=== PATIENT | female | born 1955 | race Caucasian/White ===

== ENCOUNTER 2025-03-07 15:39 | Observation (INO) | payer BC ==
[~2025-03-07] VITALS: Ht 160 cm; Wt 117.1 kg
[2025-03-07] VITALS (8 sets, daily range): BP systolic 126–153; BP diastolic 60–87
[~2025-03-07 15:39] MED LIST: SEVOFLURANE 250 ML BTL INH ONE
[2025-03-07] MEDS ORDERED: LIPITOR10 MG (15:50)
[2025-03-07] MEDS ORDERED: BUSPIRONE HCL15 MG PO (15:51)
[2025-03-07] MEDS ORDERED: OMEPRAZOLE20 MG PO (15:51)
[2025-03-07] MEDS ORDERED: DESVENLAFAXINE25 MG PO (15:52)
[2025-03-07] MEDS ORDERED: SODIUM CHLORIDE 0.9% 1,000 ML IV ONE (16:00)
[2025-03-07] MEDS ORDERED: CEFAZOLIN SODIUM 1 GM/10 ML SYR IV ONE (16:00)
[2025-03-07] MEDS ORDERED: HYDROmorphone HCL 1 MG/ML SYR IV ONE (16:00)
[2025-03-07 16:18] LABS: BASOPHILS 0.1 % (0.1-1.2); EOSINOPHILS 0.1 % (0.7-5.8); LYMPHOCYTES 42.8 % (19.3-51.7); MCH 28.2 PG (25.6-32.2); MCHC 31.5 g/dL (32.2-35.5); MCV 89.5 fL (79.4-94.8); MONOCYTES 7.8 % (4.7-12.5); NEUTROPHILS 48.8 % (34.0-71.1); RBC 4.78 M/uL (3.93-5.22)
[2025-03-07 16:32] LABS: ALT (SGPT) 19.0 U/L (14-59); AST (SGOT) 18.0 U/L (15-37); GLOMERULAR FILTRATION RATE,EST 51.0 mL/min (>60); PROTEIN, TOTAL 7.0 g/dL (6.4-8.2); UREA NITROGEN 21.0 mg/dL (7-18)
[2025-03-07] MEDS ORDERED: SODIUM CHLORIDE 0.9% 20 ML IV ONE (16:42)
[2025-03-07] MEDS ORDERED: LIDOCAINE HCL 2% 5 ML SDV ONE (16:42)
[2025-03-07] MEDS ORDERED: DEXAMETHASONE SOD PHOS 4 MG/ML VIAL ONE (16:42)
[2025-03-07] MEDS ORDERED: fentaNYL citrate 100 MCG/2 ML VIAL ONE (16:42)
[2025-03-07] MEDS ORDERED: Ropivacaine HCl 0.5% 30 ML VIAL ONE (16:42)
[2025-03-07] MEDS ORDERED: LACTATED RINGER'S 1,000 ML IV ONE (18:28)
[2025-03-07] MEDS ORDERED: HYDROCODONE/ACETA 7.5/325 TAB PO PRN (18:30)
[2025-03-07] MEDS ORDERED: KETOROLAC TROMETHAMINE 15 MG/ML VIAL IV PRN (18:30)
[2025-03-07] MEDS ORDERED: IBLOOD GLUCOSE TEST STRIP 1 EA TEST VI PRN (18:45)
[2025-03-07] MEDS ORDERED: NALOXONE HCL 0.4 MG SYR IV PRN (18:45)
[2025-03-07] MEDS ORDERED: fentaNYL citrate 50 MCG/ML SDV IV PRN (18:45)
--- NOTE | 2025-03-07 19:24 | NUR ---
RECEIVED TO ROOM 124 FROM PACU. RECEIVED REPORT FROM SEPTIC CLEANER. SPOUSE AT BEDSIDE. PT DENIES PAIN, REPORTS LEFT ARM NUMB. CALL LIGHT WITHIN REACH. PT ORIENTED TO ROOM.
--- NOTE | 2025-03-07 19:33 | NUR ---
03/07/25 193 Sarah Nair 1831: PATIENT ARRIVED TO PACU WITH ORAL AIRWAY IN PLACE. BREATHING SPONTANEOUSLY. 183: ORAL AIRWAY REMOVED BY MILITARY PAY TECHNICIAN. 1840: PATIENT DENIES PAIN. INTERMITTENTLY FALLS TO SLEEP. AWAKENS EASILY TO VOICE. 1899: PATIENT TRANSFERRED TO MED-SURG ROOM 124. 0: THIS RN STAYED AT PATIENT'S BEDSIDE IN ROOM 124 UNTIL M/S RN AVAILABLE FOR REPORT. IN PATIENT'S ROOM. REPORT GIVEN TO M/S RN. PATIENT TOLERATED TRANSFER TO M/S WELL.
--- NOTE | 2025-03-07 20:10 | NUR ---
ADMISSION ASSESSMENT COMPLETED. PT A&Ox4. DENIES PAIN. LSC, ON RA. CPOX IN PLACE. HRR. BTA, PT IS TOLERATING WATER AND JELLO. SCD'S IN PLACE TO BLE. LUE W/ CAST IN PLACE, CDI. LUE REMAINS NUMB, PT IS UNABLE TO WIGGLE FINGERS. FINGERS PINK AND WARM, CAP REFILL WNL. UNABLE TO PALPATE LEFT RADIAL PULSE R/T CAST. LUE ELEVATED ON PILLOWS W/ ICE IN PLACE. RFA IV W/ PACU LR SLOW DRIP. PT ASSISTED TO BR, SBA. LUE SLING APPLIED. VOIDS WNL. SPOUSE AT BEDSIDE. CALL LIGHT WITHIN REACH.
--- NOTE | 2025-03-07 21:55 | NUR ---
POST-OP VS OBTAINED. PT ASSISTED TO BR, VOIDS WNL. LUE IN SLING, CONTINUES W/ NUMBNESS AND UNABLE TO WIGGLE FINGERS. FINGERS PINK AND WARM, UNABLE TO CHECK RADIAL PULSE R/T CAST.
[2025-03-07] MEDS ORDERED: CEFAZOLIN SODIUM 2 GM/20 ML SYR IV SCH (22:00)
[2025-03-07] MEDS ORDERED: CEFAZOLIN SODIUM 2 GM in SODIUM CHLORIDE 0.9% 100 ML IV SCH (22:00)
--- NOTE | 2025-03-07 22:31 | NUR ---
POST-OP VSS, IV ABX ALSO COMPLETE. IV SITE WNL AND SALINE LOCKED. PRIMARY RN MADE AWARE. pt DENIES ADDITIONAL NEEDS OR CONCERNS, CALL LIGHT IN REACH.
--- NOTE | 2025-03-07 23:09 | NUR ---
PT ASLEEP, APPEARS COMFORTABLE. LUE ELEVATED ON PILLOWS.
--- NOTE | 2025-03-08 00:31 | EKG ---
[facility] [address] [facility] [place] [address] Signed Normal sinus rhythm Normal ECG No previous ECGs available Confirmed by Alireza Santamaria MD () on 03/08/2025 12:31:33 AM Electronically Signed By: ALIREZA SANTAMARIA MD 03/08/2530 PATIENT NAME: VÍCTOR ZAYAS Electrocardiogram DATE OF : 59 PHYSICIAN: ALIREZA SANTAMARIA MD REPORT #: [id number] REPORT IS CONFIDENTIAL AND NOT TO BE RELEASED WITHOUT AUTHORIZATION
--- NOTE | 2025-03-08 01:30 | NUR ---
PT ASLEEP, APPEARS COMFORTABLE. LUE ELEVATED, SLING IN PLACE.
[2025-03-08 02:29] VITALS: BP 166/77
--- NOTE | 2025-03-08 02:30 | NUR ---
ASSISTED PT TO BR, SBA. VOIDS WNL. LUE REMAINS IN SLING, DENIES PAIN. REPORTS LEFT HAND STILL NUMB, FINGERS PINK AND WARM. NEW ICE BAG PLACED. SCD'S IN PLACE. CALL LIGHT WITHIN REACH.
--- NOTE | 2025-03-08 04:56 | NUR ---
PT SLEEPING SOUNDLY. APPEARS COMFORTABLE.
[2025-03-08 05:58] VITALS: BP 146/79
--- NOTE | 2025-03-08 06:02 | NUR ---
pt awake in bed. pt has no needs at this time. call light within reach.
--- NOTE | 2025-03-08 06:22 | NUR ---
PT UP TO BR, VOIDS WNL. LUE IN SLING. PT STILL NUMB TO LUE AND UNABLE TO WIGGLE FINGERS. LEFT FINGERS PINK AND WARM, CAP REFILL WNL. FRESH ICE PACK IN PLACE.
--- NOTE | 2025-03-08 09:19 | OR ---
[facility] [address] [place], [place] [address] Signed DATE OF OPERATION: 03/07/2025 SURGEON: Angelita Lara MD PREOPERATIVE DIAGNOSIS: Grade 2 open fracture/dislocation, left wrist. POSTOPERATIVE DIAGNOSIS: Grade 2 open fracture/dislocation, left wrist. PROCEDURES PERFORMED: 1. Open reduction and internal fixation, left distal radius. 2. Irrigation and debridement, skin, subcutaneous tissue, and bone, left distal ulna. 3. Open reduction and internal fixation, distal radioulnar joint. PARI MUTUAL TICKET CHECKER: Meryl Thrasher PA-C. Meryl was present and critical for all portions of the procedure. ANESTHESIA: General. BLOOD LOSS: None. TOURNIQUET TIME: 52 minutes. IMPLANTS: 1. Brian small frag 6-hole plate with 6. 2. 2.0 K-wires x2. BRIEF HISTORY: Víctor is a 70-year-old lady who suffered a ground-level fall in local hotel parking lot. She fractured the distal radius with marked proximal migration, disruption of the DRUJ and a grade 2 open distal ulna. Risks, benefits, and alternatives of the surgery were discussed with her, and she elected to proceed. DESCRIPTION OF PROCEDURE: Once the consent was obtained, she was taken to the operating room urgently, placed on Electronically Signed By: ANGELITA LARA MD 03/08/25 0919 PATIENT NAME: VÍCTOR ZAYAS OPERATIVE REPORT DATE OF : 59 REPORT #: [id number] PHYSICIAN: ANGELITA LARA MD PCP: NO PRIMARY CARE PHYSICIAN REPORT IS CONFIDENTIAL AND NOT TO BE RELEASED WITHOUT AUTHORIZATION [facility] [address] [place], [place] [address] Signed the operating room table. After adequate anesthesia, the left arm was placed in well-padded proximal arm tourniquet. The arm was then prepped and draped in a standard sterile fashion, exsanguinated using Esmarch bandage. Tourniquet inflated to 200 mmHg. It was felt that we needed to get the radius out to length initially. We did go ahead and debride and irrigate the distal ulna, removing all foreign debris and irrigating with normal saline under light pulse vice president network. The distal ulna was then approached through a standard volar approach, carried through the skin and subcutaneous tissue. The FCR was identified, retracted and protected. The floor of the FCR sheath was opened. The volar muscle was torn from the fracture and was elevated off the volar surface of the radius proximally and distally. The fracture was then reduced using 2 clamps. It was reduced quite nicely. The fracture was held in position while the 6-hole plate was fashioned to fit the volar distal radius. We attempted to use a distal radius plate, however, was not long enough. The plate was then held with a single screw in each side of the fracture and checked with the image intensifier and found to be satisfactory. The remaining screw holes were drilled, and appropriate length screws were placed. Excellent fixation of the bone was obtained. The wound was copiously irrigated and closed in layers using 2-0 Stratafix and 3-0 Stratafix. Attention was then turned to the DRUJ, which was found to be unstable under image intensifier exam. It was then held in a reduced position, and two 2.0 K-wires percutaneously introduced from the ulnar side of the ulna crossing the bone and into the radius. This was done in the neutral position. The stellate laceration on the dorsal ulnar aspect of her wrist was then again cleansed and closed using 2-0 nylon. All wounds were dressed with Allevyn dressing, sterile cast padding and radial gutter splint. She tolerated the procedure well. All sponge, needle, and instrument counts were correct. Angelita Lara MD BA/MODL /[id number] Copies: ~ Electronically Signed By: ANGELITA LARA MD 03/08/25 0919 PATIENT NAME: VÍCTOR ZAYAS OPERATIVE REPORT DATE OF : 59 REPORT #: [id number] PHYSICIAN: ANGELITA LARA MD PCP: NO PRIMARY CARE PHYSICIAN REPORT IS CONFIDENTIAL AND NOT TO BE RELEASED WITHOUT AUTHORIZATION
[2025-03-08 09:23] VITALS: BP 145/81
[2025-03-08] MEDS ORDERED: DESVENLAFAXINE50 M3 PO (09:25)
[2025-03-08] MEDS ORDERED: SIMVASTATIN10 MG PO (09:26)
--- NOTE | 2025-03-08 09:27 | NUR ---
PATIENT IS IN BED, SHIPPING HELPER CHARTED VITALS AND I&O'S, CALL LIGHT WITH IN REACH AND NOTHING ELSE NEEDED AT THIS TIME.
[2025-03-08] MEDS ORDERED: CEFUROXIME500 MG PO (09:46)
[2025-03-08] MEDS ORDERED: HYDROCODON-ACE1 EA11 PO (09:47)
--- NOTE | 2025-03-08 09:49 | NUR ---
UR CLINICAL REVIEW: 2MN DONG, MEETS OBS FOR OPEN LEFT WRIST FRACTURE SURGICAL REPAIR REQUIRED MEDICARE OBS 03/07/2025 @ 1651 ORDER MATCHES REG NO AUTH REQUIRED PER MEDICARE RULES DC TODAY TO HOME WITH SPOUSE
[2025-03-08 10:00] VITALS: BP 145/81
--- NOTE | 2025-03-08 10:11 | NUR ---
INTO SEE PATIENT. PERSONAL HEALTH INFORMATION REVIEWED. PATIENT LIVES WITH IN [place] MOBILE HOME COUPLE STEPS INTO THE HOME. PATIENT DENIES USING DME. DRIVES. DENIES ANY DIFFCULTY PAYING UTLITIES OR OBTAINING FOOD. NO FUTHER CM NEEDS AT THIS TIME.
--- NOTE | 2025-03-08 10:26 | NUR ---
MED REC COMPLETE
== END 2025-03-08 10:55 | disposition home or self-care (01) ==
LOC: ED 15:39 → MS 15:41 → ED 16:57 → MS 03-08 10:55
PROVIDERS: Emergency Medicine; ADMIT Specialist; ATTEND Specialist
PROC: 0PSJ04Z Reposition Left Radius with Internal Fixation Device, Open Approach (ICD-10-PCS; principal; 2025-03-07 17:01)
DX: S52.592B Other fractures of lower end of left radius, initial encounter for open fracture type I or II (principal); W01.0XXA Fall on same level from slipping, tripping and stumbling without subsequent striking against object, initial encounter; Y92.481 Parking lot as the place of occurrence of the external cause; G89.18 Other acute postprocedural pain; I10 Essential (primary) hypertension; I25.10 Atherosclerotic heart disease of native coronary artery without angina pectoris; Z79.899 Other long term (current) drug therapy
CPT/HCPCS: 01830; 36415; 64417; 73100; 73110; 76942; 80053; 85025; 93005; 93010; 94762; 96365; 96366; 96374; 96375; 96376; 99285-25; C1713; G0378; J0688; J0690; J1100; J1171; J2003; J2704; J2795; J3010; J7030; J7121